=== PATIENT | male | born 1970 | race Asian ===

== ENCOUNTER 2018-04-02 12:40 | Emergency (ER) | payer MEDICAID ==
[~2018-04-02] VITALS: Ht 165.1 cm; Wt 65.9 kg
[~2018-04-02 12:40] MED LIST: FOLI1TAB16 PO; GABA-532 PO; HYDR-3965 PO; NAPR500T6 PO; PRED10TA23 PO
[2018-04-02] MEDS ORDERED: PRED20TA PO (13:18)
[2018-04-02] MEDS ORDERED: predniSONE 20 mg tablet PO ONE (13:20)
[2018-04-02 13:30] VITALS: BP 181/85
== END 2018-04-02 13:31 | disposition home or self-care (01) ==
LOC: ER 12:43
DX: S20.469A Insect bite (nonvenomous) of unspecified back wall of thorax, initial encounter (principal); L53.8 Other specified erythematous conditions; R21 Rash and other nonspecific skin eruption; Z79.899 Other long term (current) drug therapy; W57.XXXA Bitten or stung by nonvenomous insect and other nonvenomous arthropods, initial encounter; Y93.89 Activity, other specified; Y92.89 Other specified places as the place of occurrence of the external cause; Y99.8 Other external cause status
CPT/HCPCS: 99283; J7512

== ENCOUNTER 2019-04-18 15:25 | Emergency (ER) | payer MEDICAID ==
[~2019-04-18] VITALS: Ht 165.1 cm; Wt 70.0 kg
[2019-04-18] MEDS ORDERED: normal saline 1000ML IV soln IVB ONE (16:00)
[2019-04-18 16:22] LABS: HEMOGLOBIN 11.3 g/dl (14.0-17.9); RED CELL DISTRIBUTION WIDTH 15.5 % (11.5-14.5)
[2019-04-18 16:24] LABS: HEMATOCRIT 34.1 % (42.0-52.0); MEAN CORPUSCULAR HGB CONC 33.2 g/dL (33.0-36.5); MEAN CORPUSCULAR VOLUME 66.4 FL (78-98); MEAN PLATELET VOLUME 10.4 FL (7.4-10.4); PLATELET COUNT 176 X10'3 (140-440); RED BLOOD COUNT 5.14 X10'6 (4.70-6.10); WHITE BLOOD COUNT 11.3 X10'3 (4.5-11.0)
--- NOTE | 2019-04-18 16:30 | NUR ---
PATIENT EDUCATED AND DISCUSSED DRINKING ETOH AND TAKING NORCO. PATIENT VERBALIZED THAT HE SHOULD NOT BE DRINKING ETOH AND TAKING NARCOTICS. PATIENT VOIDED 400 ML IN URINAL.
[2019-04-18 16:35] LABS: ALANINE AMINOTRANSFERASE 32 U/L (12-78); ALBUMIN 3.7 G/DL (3.4-5.0); ALBUMIN/GLOBULIN RATIO 1.3 (1.1-1.5); ALKALINE PHOSPHATASE 54 IU/L (46-116); ANION GAP 5 (8-16); ASPARTATE AMINO TRANSFERASE 15 U/L (10-37); BILIRUBIN,TOTAL 0.6 MG/DL (0.1-1.0); BLOOD UREA NITROGEN 23 MG/DL (7-18); BUN/CREATININE RATIO 27.4 (5.4-32.0); CALCIUM 7.8 MG/DL (8.5-10.1); CHLORIDE 107 MMOL/L (99-107); CREATININE 0.84 MG/DL (0.60-1.10); GLUCOSE 97 MG/DL (70-104); POTASSIUM 3.2 MMOL/L (3.5-5.1); SODIUM 142 MMOL/L (135-145); TOTAL CARBON DIOXIDE 29.7 MMOL/L (24-32); TOTAL PROTEIN 6.6 G/DL (6.4-8.2); eGFR > 90 ML/MIN
[2019-04-18 17:23] LABS: ANISOCYTOSIS 1+; MICROCYTOSIS 2+; PLATELET ESTIMATE NORMAL; TOTAL CELLS COUNTED 100
[2019-04-18 17:24] LABS: TARGET CELLS 1+
[2019-04-18 17:26] LABS: TEAR DROP CELLS FEW
[2019-04-18 17:27] LABS: ELLIPTOCYTES FEW
[2019-04-18 17:28] LABS: HYPOCHROMASIA 3+; POIKILOCYTOSIS FEW; POLYCHROMASIA FEW
--- NOTE | 2019-04-18 17:41 | NUR ---
Pt self discontinued his IV access and laid it on the bed. Pt ambulatory in the hallway to the restroom. Pt stated "I want to go home."
[2019-04-18 17:57] VITALS: BP 110/71
== END 2019-04-18 18:02 | disposition home or self-care (01) ==
LOC: ER 15:26
DX: F10.129 Alcohol abuse with intoxication, unspecified (principal); R11.2 Nausea with vomiting, unspecified; Z79.899 Other long term (current) drug therapy
CPT/HCPCS: 80053; 85025; 96360; 99284; J7030

== ENCOUNTER 2020-09-21 11:22 | Emergency (ER) | payer MEDICAID ==
[~2020-09-21] VITALS: Ht 165.1 cm; Wt 66.9 kg
[2020-09-21] MEDS ORDERED: ketorolac tromethamine 15mg/ml inj. IM ONE (14:00)
[2020-09-21] MEDS ORDERED: DICL100G15 TOP (14:04)
[2020-09-21 14:44] VITALS: BP 145/75
== END 2020-09-21 14:45 | disposition home or self-care (01) ==
LOC: ER 11:22
DX: M19.90 Unspecified osteoarthritis, unspecified site (principal); M77.9 Enthesopathy, unspecified; M79.672 Pain in left foot; Z72.89 Other problems related to lifestyle; Z79.899 Other long term (current) drug therapy
CPT/HCPCS: 73630; 96372; 99283; J1885